=== PATIENT | female | born 1990 ===

== ENCOUNTER 2023-02-15 09:49 | Outpatient (CLI) | payer OTHER | END 2023-02-15 11:00 | disposition home or self-care (01) | LOC: PRENATAL 09:49 | PROVIDERS: ATTEND Obstetrics & Gynecology Maternal & Fetal Medicine | DX: O35.9XX0 Maternal care for (suspected) fetal abnormality and damage, unspecified, not applicable or unspecified (principal); O35.3XX0 Maternal care for (suspected) damage to fetus from viral disease in mother, not applicable or unspecified; Z14.8 Genetic carrier of other disease; Z3A.20 20 weeks gestation of pregnancy ==

== ENCOUNTER 2023-06-07 15:42 | Outpatient (CLI) | payer OTHER | END 2023-06-07 16:20 | disposition home or self-care (01) | LOC: PRENATAL 15:42 | PROVIDERS: ATTEND Obstetrics & Gynecology Maternal & Fetal Medicine | DX: O26.849 Uterine size-date discrepancy, unspecified trimester (principal); O36.8199 Decreased fetal movements, unspecified trimester, other fetus; O36.5990 Maternal care for other known or suspected poor fetal growth, unspecified trimester, not applicable or unspecified; Z3A.36 36 weeks gestation of pregnancy ==